=== PATIENT | male | born 1955 | race Caucasian/White ===

== ENCOUNTER 2017-11-29 10:58 | Observation (INO) ==
[2017-11-29] MEDS ORDERED: Adenosine Inj 6 MG/2 ML Syringe IV.PUSH ONE (11:16)
--- NOTE | 2017-11-29 11:55 | ED ---
HPI General Chief complaint: Shortness of Breath/Dyspnea Stated complaint: sob/ears blocking up History of Present Illness HPI narrative: Patient 62-year-old male presents emergency department for evaluation of palpitations and shortness of breath. Patient states he felt like his heart was racing along this morning she decided to come in to be seen. States this is happened to him once in the distant past but never since. No chest pain. No dizziness no nausea no vomiting. Symptoms moderate, started last night, context and associated signs symptoms as above. Denies a history of coronary artery disease. Denies history of atrial fibrillation. Related Data Home Medications Medication Instructions Recorded Confirmed atorvastatin 20 mg PO DAILY 11/29/17 11/29/17 metformin 500 mg PO BID 11/29/17 11/29/17 Allergies Allergy/AdvReac Type Severity Reaction Status Date / Time No Known Allergies Allergy Unknown none Uncoded 11/29/17 11:05 Review of Systems ROS: all other systems reviewed are negative [facility] Family History Family History Other Adopted Social History Social History Substance History: No History of Abuse Second Hand Smoke Exposure: No Smoking Status: Never smoker How Often Do You Have a Drink Containing Alcohol: 2 to 3 times a week Recent Travel in [facility] within the Last 8 Weeks: No Recent Out of Country Travel within the Last 8 Weeks: No Immunization History Tetanus Immunization: Unsure Hx Influenza Vaccine This Season: No Exam Narrative Exam Narrative: GENERAL: Well-developed well-nourished, no obvious distress. SKIN: Focused skin assessment warm/dry. HEAD: Atraumatic. Normocephalic. EYES: Pupils equal and round. No scleral icterus. No injection or drainage. ENT: No nasal bleeding or discharge. Mucous membranes pink and moist. NECK: Trachea midline. No JVD. CARDIOVASCULAR: No murmurs gallops or rubs, he is regular rhythm with tachycardia. Few PVCs noted on cardiac telemetry. No murmur appreciated. RESPIRATORY: No accessory muscle use. Clear to auscultation. Breath sounds equal bilaterally. GASTROINTESTINAL: Abdomen soft, non-tender, nondistended. Hepatic and splenic margins not palpable. MUSCULOSKELETAL: No obvious deformities. No clubbing. No cyanosis. No edema. NEUROLOGICAL: Awake and alert. No obvious cranial nerve deficits. Motor grossly within normal limits. Normal speech. PSYCHIATRIC: Appropriate mood and affect; insight and judgment normal. Course Initial Documented Vital Signs Temperature 98.2 F 11/29/17 11:05 Pulse Rate 156 H 11/29/17 11:05 Respiratory Rate 16 11/29/17 11:05 Blood Pressure 127/74 11/29/17 11:05 Pulse Oximetry 100 11/29/17 11:05 Last Documented Vital Signs Temperature 97.2 F L 11/29/17 20:00 Pulse Rate 61 11/29/17 20:00 Respiratory Rate 20 11/29/17 20:00 Blood Pressure 114/70 11/29/17 20:00 Pulse Oximetry 97 11/29/17 20:11 Medical Decision Making MDM Narrative Medical decision making narrative: Patient was room to the emergency department , found to have SVT at a rate of 140 up to 160. After telemetry was established , EKG obtained the patient was given 6 of adenosine, had conversion to normal sinus rhythm afterwards. Patient states he started to feel better. Initial workup shows significant hyperglycemia without evidence for DKA. CT pe protocol negative. Given new onset i think needs exclusion of ACS. DIscussed with Randy KHAN for Dr. Vann and admit to [facility]. Medical Screen Exam Complete: Yes Emergency Medical Condition: Yes Lab Data Result diagrams: 11/29/17 11:30 11/29/17 11:30 Lab Results 11/29/17 11/29/17 11/29/17 Range/Units 11:30 11:30 11:30 CBC w Diff Auto diff final WBC 8.1 (4.0-11.0) th/mm3 RBC 5.19 (4.50-5.90) mil/mm3 Hgb 15.1 (13.0-17.0) gm/dL Hct 45.5 (39.0-51.0) % MCV 87.7 (80.0-100.0) fL MCH 29.2 (27.0-34.0) pg MCHC 33.3 (32.0-36.0) % RDW 12.6 (11.6-17.2) % Plt Count 214 (150-450) th/mm3 MPV 10.0 (7.0-11.0) fL Neut % (Auto) 55.7 (16.0-70.0) % Lymph % (Auto) 35.0 (9.0-44.0) % [place] % (Auto) 6.7 (0.0-8.0) % Eos % (Auto) 0.9 (0.0-4.0) % Baso % (Auto) 1.7 (0.0-2.0) % Neut # (Auto) 4.6 (1.8-7.7) th/mm3 Lymph # (Auto) 2.8 (1.0-4.8) th/mm3 [place] # (Auto) 0.5 (0.0-0.9) th/mm3 Eos # (Auto) 0.1 (0.0-0.4) th/mm3 Baso # (Auto) 0.1 (0.0-0.2) th/mm3 WBC Differential . Differential Comment . D-Dimer Quant (PE/DVT) (0.00-0.50) mg/L FEU Sodium 137 (136-145) meq/L Potassium 3.6 (3.5-5.1) meq/L Chloride 102 (98-107) meq/L Carbon Dioxide 21.8 (21.0-32.0) meq/L Anion Gap 13 (5-15) meq/L BUN 20 H (7-18) mg/dL Creatinine 1.40 H (0.60-1.30) mg/dL Estimated GFR 51 L (>89) mL/min POC Glucose (68-110) mg/dl Random Glucose 572 H* (74-106) mg/dL Calcium 9.2 (8.5-10.1) mg/dL Total Bilirubin 0.8 (0.2-1.0) mg/dL AST 18 (15-37) U/L ALT 38 (12-78) U/L Alkaline Phosphatase 120 H (45-117) U/L Total Creatine Kinase (39-308) U/L Troponin I 0.03 (0.02-0.05) ng/mL Total Protein 7.7 (6.4-8.2) g/dL Albumin 3.9 (3.4-5.0) g/dL TSH 5.650 H (0.358-3.740) uIU/mL Free T4 (0.76-1.46) ng/dL Free T3 (2.18-3.98) pg/mL 11/29/17 11/29/17 11/29/17 Range/Units 11:30 13:47 16:21 CBC w Diff WBC (4.0-11.0) th/mm3 RBC (4.50-5.90) mil/mm3 Hgb (13.0-17.0) gm/dL Hct (39.0-51.0) % MCV (80.0-100.0) fL MCH (27.0-34.0) pg MCHC (32.0-36.0) % RDW (11.6-17.2) % Plt Count (150-450) th/mm3 MPV (7.0-11.0) fL Neut % (Auto) (16.0-70.0) % Lymph % (Auto) (9.0-44.0) % [place] % (Auto) (0.0-8.0) % Eos % (Auto) (0.0-4.0) % Baso % (Auto) (0.0-2.0) % Neut # (Auto) (1.8-7.7) th/mm3 Lymph # (Auto) (1.0-4.8) th/mm3 [place] # (Auto) (0.0-0.9) th/mm3 Eos # (Auto) (0.0-0.4) th/mm3 Baso # (Auto) (0.0-0.2) th/mm3 WBC Differential Differential Comment D-Dimer Quant (PE/DVT) 0.22 (0.00-0.50) mg/L FEU Sodium (136-145) meq/L Potassium (3.5-5.1) meq/L Chloride (98-107) meq/L Carbon Dioxide (21.0-32.0) meq/L Anion Gap (5-15) meq/L BUN (7-18) mg/dL Creatinine (0.60-1.30) mg/dL Estimated GFR (>89) mL/min POC Glucose 466 H* (68-110) mg/dl Random Glucose (74-106) mg/dL Calcium (8.5-10.1) mg/dL Total Bilirubin (0.2-1.0) mg/dL AST (15-37) U/L ALT (12-78) U/L Alkaline Phosphatase (45-117) U/L Total Creatine Kinase 75 (39-308) U/L Troponin I 0.06 H (0.02-0.05) ng/mL Total Protein (6.4-8.2) g/dL Albumin (3.4-5.0) g/dL TSH (0.358-3.740) uIU/mL Free T4 0.86 (0.76-1.46) ng/dL Free T3 2.30 (2.18-3.98) pg/mL 11/29/17 11/29/17 11/29/17 Range/Units 16:21 16:48 21:19 CBC w Diff WBC (4.0-11.0) th/mm3 RBC (4.50-5.90) mil/mm3 Hgb (13.0-17.0) gm/dL Hct (39.0-51.0) % MCV (80.0-100.0) fL MCH (27.0-34.0) pg MCHC (32.0-36.0) % RDW (11.6-17.2) % Plt Count (150-450) th/mm3 MPV (7.0-11.0) fL Neut % (Auto) (16.0-70.0) % Lymph % (Auto) (9.0-44.0) % [place] % (Auto) (0.0-8.0) % Eos % (Auto) (0.0-4.0) % Baso % (Auto) (0.0-2.0) % Neut # (Auto) (1.8-7.7) th/mm3 Lymph # (Auto) (1.0-4.8) th/mm3 [place] # (Auto) (0.0-0.9) th/mm3 Eos # (Auto) (0.0-0.4) th/mm3 Baso # (Auto) (0.0-0.2) th/mm3 WBC Differential Differential Comment D-Dimer Quant (PE/DVT) (0.00-0.50) mg/L FEU Sodium (136-145) meq/L Potassium (3.5-5.1) meq/L Chloride (98-107) meq/L Carbon Dioxide (21.0-32.0) meq/L Anion Gap (5-15) meq/L BUN (7-18) mg/dL Creatinine (0.60-1.30) mg/dL Estimated GFR (>89) mL/min POC Glucose 342 H 211 H (68-110) mg/dl Random Glucose (74-106) mg/dL Calcium (8.5-10.1) mg/dL Total Bilirubin (0.2-1.0) mg/dL AST (15-37) U/L ALT (12-78) U/L Alkaline Phosphatase (45-117) U/L Total Creatine Kinase Cancelled (39-308) U/L Troponin I Cancelled (0.02-0.05) ng/mL Total Protein (6.4-8.2) g/dL Albumin (3.4-5.0) g/dL TSH (0.358-3.740) uIU/mL Free T4 (0.76-1.46) ng/dL Free T3 (2.18-3.98) pg/mL Imaging Data Radiologist's impression: Chest CTA 11/29/17 11:42 CONCLUSION: 1. Clear lungs. No evidence for PE. Chest X-Ray 11/29/17 11:42 CONCLUSION: Abnormal opacity projects over the right upper lung zone which may be related to developing airspace disease, osseous summation shadow or nodularity. Discharge Plan Discharge Disposition Patient Disposition: 30 Still Patient Discharge Condition Condition: Stable Discharge Details Diagnosis: Supraventricular tachycardia, Hx of diabetes mellitus, History of high cholesterol, Shortness of breath, Uncontrolled diabetes mellitus Physicians Team ED Provider: Cachorro Archer Primary Care Provider: Benny Nuñez Attending Provider: Elza Vann Discharge Interventions Interventions: ED Discharge Assessment Last Done: 11/29/17 16:30 Status ED Status: Left Department Discharge Information Discharge Date/Time: 11/29/17 16:44
[2017-11-29 12:03] LABS: Baso # (Auto) 0.1 th/mm3 (0.0-0.2); Baso % (Auto) 1.7 % (0.0-2.0); Eos # (Auto) 0.1 th/mm3 (0.0-0.4); Eos % (Auto) 0.9 % (0.0-4.0); Hematocrit 45.5 % (39.0-51.0); Hemoglobin 15.1 gm/dL (13.0-17.0); Lymph # (Auto) 2.8 th/mm3 (1.0-4.8); Mean Corpuscular HGB Conc 33.3 % (32.0-36.0); Mean Corpuscular Hemoglobin 29.2 pg (27.0-34.0); Mean Corpuscular Volume 87.7 fL (80.0-100.0); Mono # (Auto) 0.5 th/mm3 (0.0-0.9); Mono % (Auto) 6.7 % (0.0-8.0); Neut # (Auto) 4.6 th/mm3 (1.8-7.7); Neut % (Auto) 55.7 % (16.0-70.0); Platelet Count 214 th/mm3 (150-450); Red Blood Count 5.19 mil/mm3 (4.50-5.90); Red Cell Distribution Width 12.6 % (11.6-17.2); White Blood Count 8.1 th/mm3 (4.0-11.0)
[2017-11-29 12:12] LABS: Chloride 102 meq/L (98-107); Potassium 3.6 meq/L (3.5-5.1); Sodium 137 meq/L (136-145)
[2017-11-29 12:15] LABS: Calcium 9.2 mg/dL (8.5-10.1)
[2017-11-29 12:16] LABS: Albumin 3.9 g/dL (3.4-5.0); Anion Gap 13 meq/L (5-15); Blood Urea Nitrogen 20 mg/dL (7-18); Carbon Dioxide 21.8 meq/L (21.0-32.0)
[2017-11-29 12:19] LABS: Alanine Aminotransferase 38 U/L (12-78); Aspartate Aminotransferase 18 U/L (15-37); Glomerular Filtration Rate 51 mL/min (>89)
[2017-11-29 12:21] LABS: Total Protein 7.7 g/dL (6.4-8.2)
--- NOTE | 2017-11-29 12:21 | XR ---
EXAM DATE: 11/29/2017 12:10 PM EDT AGE/SEX: 62 years / Male INDICATIONS: Short of breath, heart racing. CLINICAL DATA: This is the patient's initial encounter. Patient reports that signs and symptoms have been present for 1 day and indicates a pain score of 0/10. MEDICAL/SURGICAL HISTORY: Diabetes mellitus type II. None. COMPARISON: No prior exams available for comparison. FINDINGS: Degenerative changes of the spine. Heart size normal. There is vague nodular opacity and parenchymal density overlying the right upper lobe. This may reflect an area of airspace disease or underlying beatriz ng nodules. No effusions. CONCLUSION: Abnormal opacity projects over the right upper lung zone which may be related to developing airspace disease, osseous summation shadow or nodularity. Electronically signed by: Sergey Santos MD 11/29/2017 12:19 PM EDT
[2017-11-29 12:34] LABS: Alkaline Phosphatase 120 U/L (45-117); Troponin I 0.03 ng/mL (0.02-0.05)
[2017-11-29 12:35] LABS: Glucose,Random 572 mg/dL (74-106)
[2017-11-29] MEDS ORDERED: Sod Chloride 0.9% Inj 1,000 ML IV.SIG SCH (12:45)
--- NOTE | 2017-11-29 13:00 | CT ---
EXAM DATE: 11/29/2017 12:50 PM EDT AGE/SEX: 62 years / Male INDICATIONS: Short of breath. CLINICAL DATA: This is the patient's initial encounter. Patient reports that signs and symptoms have been present for 1 day and indicates a pain score of 0/10. MEDICAL/SURGICAL HISTORY: Diabetes. None. RADIATION DOSE: 10.92 CTDI (mGy) COMPARISON: [facility], CHEST 1V SINGLE AP, 11/29/2017. . TECHNIQUE: Volumetric scanning was performed using a multi-row detector CT scanner during bolus infu kathy of 75 ml Omnipaque 350 (iohexol) nonionic water-soluble contrast as a single exam dose. The hany a was post processed with a variety of visualization algorithms including full volume maximum intensi ty projection and sliding thin slab reformation. Using automated exposure control and adjustment of the mA and/or kV according to patient size, radiation dose was kept as low as reasonably achievable t o obtain optimal diagnostic quality images. DICOM format image data is available electronically for review and comparison. FINDINGS: The lungs are clear. There is no evidence for pulmonary embolism. No pleural or pericardial effusions . No adenopathy. Osseous structures are intact. CONCLUSION: 1. Clear lungs. No evidence for PE. Electronically signed by: Sergey Santos MD 11/29/2017 12:58 PM EDT
--- NOTE | 2017-11-29 13:05 | ECG ---
Date Performed: 11/29/2017 Time Performed: 11:06:09 PTAGE: 62 years EKG: SUPRAVENTRICULAR TACHYCARDIA INDETERMINATE AXIS ABNORMAL RHYTHM ECG PREVIOUS TRACING : 05/17/2011 14.58 DOCTOR: Raudel Cardenas Interpretating Date/Time 11/29/2017 13:04:24
[2017-11-29] MEDS ORDERED: Temazepam 15 MG Capsule PO PRN (14:19)
[2017-11-29] MEDS ORDERED: Acetaminophen 500 MG Tablet PO PRN (14:19)
[2017-11-29] MEDS ORDERED: Dextrose 50% in Water 50 ML Vial IV.PUSH PRN (14:23)
[2017-11-29] MEDS: Heparin - SQ 10,000 UNITS/ML Vial SQ SCH (16:26)
[2017-11-29] MEDS: Sod Chloride 0.9% Inj 1,000 ML IV.CONT SCH (16:27)
--- NOTE | 2017-11-29 16:47 | P.HP ---
History of Present Illness Primary Care Physician: Benny Nueñz Chief Complaint: Shortness of breath History of Present Illness: 62-year-old male with known history of diabetes who presented to the hospital because of shortness of breath. Patient states that he was in a normal state of health until this morning when he went to take the garbage out when he started developing shortness of breath, dyspnea on exertion. Patient states that his respiratory status did not improve and she started developing some sweating over his chest and because of that he came to emergency department for evaluation. Patient indicates that on his way to the hospital he started feeling as if his heart was racing. Patient came to the emergency department patient was found to have supraventricular tachycardia with heart rate in 150s. Patient was given adenosine with correction of his heart rate. Patient states that approximately 8 months ago he had a similar type of discomfort. However it went away on its own. This time lasted much longer than is reason why he came to the hospital. Patient denied any chest pain, nausea, vomiting, lower extremity edema, abdominal pain. - Diagnosis (1) Supraventricular tachycardia (2) Shortness of breath (3) Uncontrolled diabetes mellitus Review of Systems All other systems reviewed negative except as stated in HPI Cardiovascular: Reports rapid, pounding, or irregular heartbeat, Reports shortness of breath with activity Respiratory: Reports shortness of breath PMFSH - History History Provided By: Patient - Medical History Medical History: Medical History (Last Reviewed 11/29/17 @ 16:43 by BILL Adamson) History of high cholesterol (Acute) Hx of diabetes mellitus (Acute) - Surgical History Surgical History: Surgical History (Last Reviewed 11/29/17 @ 16:43 by BILL Adamson) History of tonsillectomy and adenoidectomy (Acute) - Family History Family History: Family History (Last Updated 11/29/17 @ 16:43 by BILL Adamson) Other Adopted - Tobacco History Second Hand Smoke Exposure: No Smoking Status: Never smoker - Alcohol History How Often Do You Have a Drink Containing Alcohol: 2 to 4 times a month - Substance Use History Substance History: No History of Abuse - Travel History Recent Travel in the [place] Within the Last 8 Weeks: No Recent Travel Out of the Country Within the Last 8 Weeks: No - Immunization History Tetanus Immunization: Unsure Hx Influenza Vaccine This Season: No Medications and Allergies Active Medications: Active Medications Acetaminophen (Tylenol) 500 mg PO Q4H PRN PRN Reason: HEADACHE Aspirin (Aspirin) 325 mg PO DAILY [facility] Atorvastatin Calcium (Lipitor) 20 mg PO DAILY [facility] Dextrose (D50w Vial) 50 ml IV.PUSH UNSCH PRN PRN Reason: PER HYPOGLYCEMIA PROTOCOL Glucagon (Glucagon Inj) 1 mg OTHER PRN PRN PRN Reason: for Hypoglycemia Protocol Heparin Sodium (Porcine) (Heparin Inj) 5,000 units SQ Q12H [facility] Last Admin: 11/29/17 16:26 Dose: 5,000 units Sodium Chloride (Ns Inj) 1,000 mls @ 0 mls/hr IV.SIG BOLUS [facility] Last Infusion: 11/29/17 14:04 Dose: Infused Sodium Chloride (Ns Inj) 1,000 mls @ 100 mls/hr IV.CONT .Q10H [facility] Last Admin: 11/29/17 16:27 Dose: 100 mls/hr Insulin Aspart (Novolog Insulin Correctional Sugar Inj) 0 unit SQ ACHS [facility]; Protocol Nitroglycerin (Nitrostat Sl) 0.4 mg SL Q5M PRN PRN Reason: ANGINA Sodium Chloride (Ns Flush) 2 ml IV.FLUSH UNSCH PRN PRN Reason: FLUSH AFTER USING IV ACCESS Sodium Chloride (Ns Flush) 2 ml IV.FLUSH BID [facility] Sodium Chloride (Ns Flush) 2 ml IV.FLUSH PRN PRN PRN Reason: FLUSH AFTER USING IV ACCESS Temazepam (Restoril) 15 mg PO HS PRN PRN Reason: INSOMNIA Allergies Allergy/AdvReac Type Severity Reaction Status Date / Time No Known Allergies Allergy Unknown none Uncoded 11/29/17 11:05 Home Medications Medication Instructions Recorded Confirmed Type atorvastatin 20 mg PO DAILY 11/29/17 11/29/17 History metformin 500 mg PO BID 11/29/17 11/29/17 History Exam Vital signs: Vital Signs 11/29/17 11:05 11/29/17 11:27 11/29/17 11:32 Temperature 98.2 F 98.2 F Pulse Rate 156 H 156 H 70 Respiratory Rate 16 16 16 Blood Pressure 127/74 127/74 111/67 Pulse Oximetry 100 100 99 11/29/17 11:42 11/29/17 13:23 11/29/17 15:37 Temperature Pulse Rate 60 Respiratory Rate 16 Blood Pressure 118/66 Pulse Oximetry 98 98 98 11/29/17 16:29 Temperature Pulse Rate 52 L Respiratory Rate 16 Blood Pressure 131/74 Pulse Oximetry 98 Intake & Output 11/28/17 11/29/17 11/29/17 18:59 06:59 18:59 Intake Total 1000 / 1000 Output Total 700 / 700 Balance 300 / 300 Weight 75 kg Intake: IV 1000 / 1000 NS Inj 1,000 ML @ Wide Open IV. 1000 / 1000 SIG BOLUS [facility] Rx#:[id number] Output: Urine 700 / 700 Narrative: GENERAL: Well-developed, well-nourished, in no acute distress. alert and orientated HEENT: Head is normocephalic without any lesions or masses noted. Facial features are symmetric. Eyes: Pupils equal round reactive to light. Extraocular muscles are intact. Conjunctivae were clear. Oropharyngeal: Pharynx without any erythema edema. Tongue is midline without deviation. Buccal mucosa is moist without any masses or lesions NECK: Supple without any masses. Trachea midline no deviation. No JVD, no bruits are appreciated CARDIAC: Regular rhythm, regular rate. S1/S2 are heard. No murmurs gallops or rubs. LUNGS: Clear to auscultation bilaterally. No wheeze, rhonchi or rales. No use of accessory muscles on inspiration or expiration. ABDOMEN: Soft, nontender. Nondistended. Bowel sounds heard in all 4 quadrants. No organomegaly or masses. Negative rebound, negative guarding EXTREMITIES: No edema, pulses are equal bilaterally. No cyanosis or clubbing NEUROLOGY: Mood and affect appear appropriate. Cranial nerves II through XII grossly intact. Muscle strength 5/5 in upper and lower extremities bilaterally. Deep tendon reflexes are 2+ in upper and lower extremities bilaterally. Results - Labs CBC & Chem 7: 11/29/17 11:30 11/29/17 11:30 Labs: Laboratory Results - last 24 hr 11/29/17 11/29/17 11/29/17 11:30 11:30 11:30 CBC w Diff Auto diff final WBC 8.1 RBC 5.19 Hgb 15.1 Hct 45.5 MCV 87.7 MCH 29.2 MCHC 33.3 RDW 12.6 Plt Count 214 MPV 10.0 Neut % (Auto) 55.7 Lymph % (Auto) 35.0 [place] % (Auto) 6.7 Eos % (Auto) 0.9 Baso % (Auto) 1.7 Neut # (Auto) 4.6 Lymph # (Auto) 2.8 [place] # (Auto) 0.5 Eos # (Auto) 0.1 Baso # (Auto) 0.1 WBC Differential . Differential Comment . Sodium 137 Potassium 3.6 Chloride 102 Carbon Dioxide 21.8 Anion Gap 13 BUN 20 H Creatinine 1.40 H Estimated GFR 51 L POC Glucose Random Glucose 572 H* Calcium 9.2 Total Bilirubin 0.8 AST 18 ALT 38 Alkaline Phosphatase 120 H Troponin I 0.03 Total Protein 7.7 Albumin 3.9 TSH 5.650 H 11/29/17 13:47 CBC w Diff WBC RBC Hgb Hct MCV MCH MCHC RDW Plt Count MPV Neut % (Auto) Lymph % (Auto) [place] % (Auto) Eos % (Auto) Baso % (Auto) Neut # (Auto) Lymph # (Auto) [place] # (Auto) Eos # (Auto) Baso # (Auto) WBC Differential Differential Comment Sodium Potassium Chloride Carbon Dioxide Anion Gap BUN Creatinine Estimated GFR POC Glucose 466 H* Random Glucose Calcium Total Bilirubin AST ALT Alkaline Phosphatase Troponin I Total Protein Albumin TSH - Imaging Impressions Chest CTA 11/29/17 11:42 CONCLUSION: 1. Clear lungs. No evidence for PE. Chest X-Ray 11/29/17 11:42 CONCLUSION: Abnormal opacity projects over the right upper lung zone which may be related to developing airspace disease, osseous summation shadow or nodularity. Caprini VTE Risk Assessment Caprini VTE Risk Assessment: Moderate/High Risk (score >= 2) Caprini Risk Assessment Model: Point Value = 1 Point Value = 2 Point Value = 3 Point Value = 5 Age 41-60 Minor surgery BMI > 25 kg/m2 Swollen legs Varicose veins or History of unexplained or recurrent spontaneous Oral contraceptives or hormone replacement Sepsis (< 1 month) Serious lung disease, including pneumonia (< 1 month) Abnormal pulmonary function Acute myocardial infarction Congestive heart failure (< 1 month) History of inflammatory bowel disease Medical patient at bed rest Age 61-74 Arthroscopic surgery Major open surgery (> 45 min) Laparoscopic surgery (> 45 min) Malignancy Confined to bed (> 72 hours) Immobilizing plaster cast Central venous access Age >= 75 History of VTE Family history of VTE Factor V Leiden Prothrombin [id number] Lupus anticoagulant Anticardiolipin antibodies Elevated serum homocysteine Heparin-induced thrombocytopenia Other congenital or acquired thrombophilia Stroke (< 1 month) Elective arthroplasty Hip, pelvis, or leg fracture Acute spinal cord injury (< 1 month) Prophylaxis Regimen: Total Risk Factor Score Risk Level Prophylaxis Regimen 0-1 Low Early ambulation 2 Moderate Order ONE of the following: *Sequential Compression Device (SCD) *Heparin 5000 units SQ BID 3-4 Higher Order ONE of the following medications: *Heparin 5000 units SQ TID *Enoxaparin/Lovenox 40 mg SQ daily (WT < 150 kg, CrCl > 30 mL/min) *Enoxaparin/Lovenox 30 mg SQ daily (WT < 150 kg, CrCl > 10-29 mL/min) *Enoxaparin/Lovenox 30 mg SQ BID (WT < 150 kg, CrCl > 30 mL/min) AND/OR *Sequential Compression Device (SCD) 5 or more Highest Order ONE of the following medications: *Heparin 5000 units SQ TID (Preferred with Epidurals) *Enoxaparin/Lovenox 40 mg SQ daily (WT < 150 kg, CrCl > 30 mL/min) *Enoxaparin/Lovenox 30 mg SQ daily (WT < 150 kg, CrCl > 10-29 mL/min) *Enoxaparin/Lovenox 30 mg SQ BID (WT < 150 kg, CrCl > 30 mL/min) AND *Sequential Compression Device (SCD) Assessment and Plan - Assessment (1) Supraventricular tachycardia Code(s): I47.1 - Supraventricular tachycardia Status: Acute (2) Shortness of breath Code(s): R06.02 - Shortness of breath Status: Acute (3) Uncontrolled diabetes mellitus Code(s): E11.65 - Type 2 diabetes mellitus with hyperglycemia Status: Acute - Plan Supraventricular tachycardia -Status post adenosine in the emergency department with improved heart rate -We will continue ruled patient out for any underlying cardiac issues with serial cardiac enzymes, serial EKGs, obtain stat d-dimer -TSH was performed which was 5.65, obtain free T4, free T3 -Obtain lipid panel Uncontrolled diabetes -Status post IV insulin in the emergency department -Accu-Cheks with sliding scale insulin -Obtain hemoglobin A1c DVT prevention -Subcutaneous heparin
[2017-11-29 16:48] LABS: Troponin I 0.06 ng/mL (0.02-0.05)
[2017-11-29] MEDS: Insulin NovoLOG Aspart Correctional Sugar Inj SQ SCH ×2 (18:09→21:37)
[2017-11-29 22:33] LABS: Free T4 (Free Thyroxine) 0.86 ng/dL (0.76-1.46); Triiodothyronine (T3) Free 2.3 pg/mL (2.18-3.98)
[2017-11-29 23:53] LABS: Troponin I 0.07 ng/mL (0.02-0.05)
[2017-11-30] MEDS: Sod Chloride 0.9% Inj 1,000 ML IV.CONT SCH ×2 (01:52→11:13)
[2017-11-30] MEDS: Heparin - SQ 10,000 UNITS/ML Vial SQ SCH (04:50)
[2017-11-30 06:30] LABS: Chloride 109 meq/L (98-107); Potassium 3.8 meq/L (3.5-5.1); Sodium 143 meq/L (136-145)
[2017-11-30 06:38] LABS: Anion Gap 8 meq/L (5-15); Blood Urea Nitrogen 17 mg/dL (7-18); Calcium 8.1 mg/dL (8.5-10.1); Carbon Dioxide 26.5 meq/L (21.0-32.0); Glomerular Filtration Rate Greater Than 89 mL/min (>89); Glucose,Random 179 mg/dL (74-106)
[2017-11-30] MEDS: Insulin NovoLOG Aspart Correctional Sugar Inj SQ SCH ×2 (08:13→11:52)
--- NOTE | 2017-11-30 08:15 | P.PN ---
Subjective Interval history: Patient seen and examined today to follow-up on supraventricular tachycardia. Patient has not had any recurrent episodes of tachycardia. Telemetry indicating bradycardia. Patient denies any chest pain, shortness of breath, dyspnea. Vital signs still indicate bradycardia. Blood pressure stable. Patient remains afebrile Physical Exam Vital signs: Vital Signs 11/29/17 11:05 11/29/17 11:27 11/29/17 11:32 Temperature 98.2 F 98.2 F Pulse Rate 156 H 156 H 70 Respiratory Rate 16 16 16 Blood Pressure 127/74 127/74 111/67 Pulse Oximetry 100 100 99 11/29/17 11:42 11/29/17 13:23 11/29/17 15:37 Temperature Pulse Rate 60 Respiratory Rate 16 Blood Pressure 118/66 Pulse Oximetry 98 98 98 11/29/17 16:00 11/29/17 16:29 11/29/17 16:45 Temperature 96.8 F L Pulse Rate 50 L 52 L Respiratory Rate 16 16 Blood Pressure 137/63 131/74 Pulse Oximetry 98 98 99 11/29/17 16:54 11/29/17 17:13 11/29/17 20:00 Temperature 97.2 F L Pulse Rate 52 L 61 Respiratory Rate 20 Blood Pressure 114/70 Pulse Oximetry 99 97 11/29/17 20:11 11/30/17 00:00 11/30/17 04:00 Temperature 98.0 F 96.0 F L Pulse Rate 54 L 55 L Respiratory Rate 20 21 Blood Pressure 127/76 126/80 Pulse Oximetry 97 98 98 11/30/17 07:52 Temperature Pulse Rate Respiratory Rate Blood Pressure Pulse Oximetry 97 Intake & Output 11/29/17 11/30/17 11/30/17 18:59 06:59 18:59 Intake Total 1360 / 1360 1000 / 1000 Output Total 700 / 700 Balance 660 / 660 1000 / 1000 Weight 81.3 kg 82 kg Intake: IV 1000 / 1000 1000 / 1000 NS Inj 1,000 ML @ 100 mls/hr IV 1000 / 1000 .CONT .Q10H LALI Rx#:[id number] NS Inj 1,000 ML @ Wide Open IV. 1000 / 1000 SIG BOLUS LALI Rx#:[id number] Oral 360 / 360 0 / 0 Output: Urine 700 / 700 Other: # Voids 1 3 # Bowel Movements 0 Weight On Admission 81.3 kg Narrative: GENERAL: Well-developed, well-nourished, in no acute distress. alert and orientated HEENT: Head is normocephalic without any lesions or masses noted. Facial features are symmetric. Eyes: Extraocular muscles are intact. Conjunctivae were clear. NECK: Supple without any masses. Trachea midline no deviation. No JVD, CARDIAC: Regular rhythm, bradycardic. S1/S2 are heard. No murmurs gallops or rubs. LUNGS: Clear to auscultation bilaterally. No wheeze, rhonchi or rales. No use of accessory muscles on inspiration or expiration. ABDOMEN: Soft, nontender. Nondistended. Bowel sounds heard in all 4 quadrants. No organomegaly or masses. Negative rebound, negative guarding EXTREMITIES: No edema, pulses are equal bilaterally. No cyanosis or clubbing NEUROLOGY: Mood and affect appear appropriate. Cranial nerves II through XII grossly intact. Moving all extremities, speech is clear Results - Labs CBC & Chem 7: 11/29/17 11:30 11/30/17 05:15 Laboratory Results - last 24 hr 11/29/17 11/29/17 11/29/17 11:30 11:30 11:30 CBC w Diff Auto diff final WBC 8.1 RBC 5.19 Hgb 15.1 Hct 45.5 MCV 87.7 MCH 29.2 MCHC 33.3 RDW 12.6 Plt Count 214 MPV 10.0 Neut % (Auto) 55.7 Lymph % (Auto) 35.0 [place] % (Auto) 6.7 Eos % (Auto) 0.9 Baso % (Auto) 1.7 Neut # (Auto) 4.6 Lymph # (Auto) 2.8 [place] # (Auto) 0.5 Eos # (Auto) 0.1 Baso # (Auto) 0.1 WBC Differential . Differential Comment . D-Dimer Quant (PE/DVT) Sodium 137 Potassium 3.6 Chloride 102 Carbon Dioxide 21.8 Anion Gap 13 BUN 20 H Creatinine 1.40 H Estimated GFR 51 L POC Glucose Random Glucose 572 H* Calcium 9.2 Total Bilirubin 0.8 AST 18 ALT 38 Alkaline Phosphatase 120 H Total Creatine Kinase Troponin I 0.03 Total Protein 7.7 Albumin 3.9 TSH 5.650 H Free T4 Free T3 11/29/17 11/29/17 11/29/17 11:30 13:47 16:21 CBC w Diff WBC RBC Hgb Hct MCV MCH MCHC RDW Plt Count MPV Neut % (Auto) Lymph % (Auto) [place] % (Auto) Eos % (Auto) Baso % (Auto) Neut # (Auto) Lymph # (Auto) [place] # (Auto) Eos # (Auto) Baso # (Auto) WBC Differential Differential Comment D-Dimer Quant (PE/DVT) 0.22 Sodium Potassium Chloride Carbon Dioxide Anion Gap BUN Creatinine Estimated GFR POC Glucose 466 H* Random Glucose Calcium Total Bilirubin AST ALT Alkaline Phosphatase Total Creatine Kinase 75 Troponin I 0.06 H Total Protein Albumin TSH Free T4 0.86 Free T3 2.30 11/29/17 11/29/17 11/29/17 16:21 16:48 21:19 CBC w Diff WBC RBC Hgb Hct MCV MCH MCHC RDW Plt Count MPV Neut % (Auto) Lymph % (Auto) [place] % (Auto) Eos % (Auto) Baso % (Auto) Neut # (Auto) Lymph # (Auto) [place] # (Auto) Eos # (Auto) Baso # (Auto) WBC Differential Differential Comment D-Dimer Quant (PE/DVT) Sodium Potassium Chloride Carbon Dioxide Anion Gap BUN Creatinine Estimated GFR POC Glucose 342 H 211 H Random Glucose Calcium Total Bilirubin AST ALT Alkaline Phosphatase Total Creatine Kinase Cancelled Troponin I Cancelled Total Protein Albumin TSH Free T4 Free T3 11/29/17 11/30/17 11/30/17 23:20 05:15 07:33 CBC w Diff WBC RBC Hgb Hct MCV MCH MCHC RDW Plt Count MPV Neut % (Auto) Lymph % (Auto) [place] % (Auto) Eos % (Auto) Baso % (Auto) Neut # (Auto) Lymph # (Auto) [place] # (Auto) Eos # (Auto) Baso # (Auto) WBC Differential Differential Comment D-Dimer Quant (PE/DVT) Sodium 143 Potassium 3.8 Chloride 109 H Carbon Dioxide 26.5 Anion Gap 8 BUN 17 Creatinine 0.73 Estimated GFR Greater than 89 POC Glucose 198 H Random Glucose 179 H D Calcium 8.1 L D Total Bilirubin AST ALT Alkaline Phosphatase Total Creatine Kinase 66 Troponin I 0.07 H Total Protein Albumin TSH Free T4 Free T3 - Imaging Impressions Chest CTA 11/29/17 11:42 CONCLUSION: 1. Clear lungs. No evidence for PE. Chest X-Ray 11/29/17 11:42 CONCLUSION: Abnormal opacity projects over the right upper lung zone which may be related to developing airspace disease, osseous summation shadow or nodularity. Assessment and Plan - Assessment (1) Supraventricular tachycardia Code(s): I47.1 - Supraventricular tachycardia Status: Acute (2) Shortness of breath Code(s): R06.02 - Shortness of breath Status: Acute (3) Uncontrolled diabetes mellitus Code(s): E11.65 - Type 2 diabetes mellitus with hyperglycemia Status: Acute - Plan Supraventricular tachycardia -Status post adenosine in the emergency department with improved heart rate -Serial cardiac enzymes were performed which did have mild elevation with equivocal troponin up to 0.07 -TSH was performed which was 5.65, obtain free T4 0.86, free T3 2.30 -Lipid panel indicates that LDL 46 -cardiology consultation for further recommendations -Myocardial perfusion study was performed and indicated mild apical perfusion abnormalities with low risk. Cardiology was notified who indicated possible apical thinning artifact okay to discharge with follow-up with Dr. Montalvo in 3-4 weeks Uncontrolled diabetes, improved with sliding scale insulin -Status post IV insulin in the emergency department -Accu-Cheks with sliding scale insulin, patient has used 16 units of insulin since admission -Hemoglobin A1c pending DVT prevention -Subcutaneous heparin Discussed Condition With: Discussed with patient, nursing staff, cardiology Discharge Planning: Discharge home in stable condition Activity: Ad esther. Diet: Healthy heart diet, diabetic diet Medication per medication reconciliation Follow-up with primary medical doctor in 1 week
[2017-11-30 08:44] VITALS: O2SAT 100
[2017-11-30] MEDS ORDERED: Aspirin 325 MG Tablet PO SCH (09:00)
--- NOTE | 2017-11-30 09:06 | MB ---
cc: Enmanuel Olivares MD DATE: 11/30/2017 REASON FOR CONSULTATION: Abnormal troponin level, paroxysmal supraventricular tachycardia. HISTORY OF PRESENT ILLNESS: The patient is a 62-year-old white male with a history of diabetes, hyperlipidemia, who was in his usual state of health up until yesterday morning when he began experience racing palpitations, preceded by approximately 40 minutes of increasing dyspnea. He believes the palpitations lasted about 90 minutes prior to being given adenosine in the emergency department, which broke the supraventricular tachycardia promptly. Many years ago, he had similar racing palpitations, but lasted only a few minutes. At the time of his palpitations, he also felt mildly diaphoretic. He denies sue chest pain, nausea, syncope, near syncope, pedal edema, paroxysmal nocturnal dyspnea. Yesterday, he also felt mildly lightheaded during the tachycardia. PAST MEDICAL HISTORY: 1. Diabetes. 2. Hyperlipidemia. PAST SURGICAL HISTORY: 1. Tonsillectomy. 2. Adenoidectomy. CARDIAC MEDICATIONS AT HOME: Atorvastatin 20 mg at bedtime. ALLERGIES: NO KNOWN DRUG ALLERGIES. FAMILY HISTORY: Unknown. The patient is adopted. SOCIAL HISTORY: The patient denies any history of tobacco abuse. He drinks occasional alcohol. REVIEW OF SYSTEMS: As in the history of present illness, otherwise negative or noncontributory. He also denies headache, abdominal pain, melena, dyspepsia, bright red blood per rectum, fevers. PHYSICAL EXAMINATION: VITAL SIGNS: His blood pressure 126/80 with a pulse of 50, respirations 20. GENERAL: He is a well-developed, well-nourished, white male in no acute distress. NECK: Jugular venous pressure is normal. Carotid pulses are 2+ bilaterally without bruits. CHEST: Reveals clear lungs vogel. CARDIAC: He has a bradycardic regular rhythm without S3, S4, or murmur. ABDOMEN: He has a soft nontender abdomen. Bowel sounds are present. There is no definite hepatosplenomegaly. EXTREMITIES: Reveals no clubbing, cyanosis, or edema. DIAGNOSTIC DATA: EKG from 11/29/2017 at 11:06 a.m. shows supraventricular tachycardia with a cycle length of 400 milliseconds, otherwise normal EKG. EKG from 11/29/2017 at 5:39 p.m. shows sinus bradycardia, otherwise normal. Laboratory data includes normal CBC. Normal basic metabolic profile, except for glucose 179. CK 75. Troponin 0.07. IMPRESSION: Paroxysmal supraventricular tachycardia, slightly abnormal troponin level in this 62-year-old white male with a history of diabetes, hyperlipidemia. Since coming into the hospital, he has had no further tachycardia. His tachyarrhythmia yesterday was promptly responsive to adenosine. 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 The slightly abnormal troponin levels are probably due to the tachycardia. On the other hand, he is a diabetic and has a history of hyperlipidemia. He also experienced symptoms of dyspnea and diaphoresis with the tachycardic episode yesterday. Post-tachycardia EKG is unremarkable. RECOMMENDATIONS: 1. As treatment of his supraventricular tachycardia with antiarrhythmic drugs or AV tariq suppressing drugs will be difficult with his underlying bradycardia, recommend continued observation as his episodes are overall rare at this time. If he has significant recurrences in the future, I have recommended he see our [employer] for an ablation procedure. 2. Given his slightly abnormal troponin levels and coronary artery disease risk factors, recommend checking a Lexiscan nuclear stress test. If it is negative for ischemia, he is cleared for discharge later today. MD MILE Alcala/valerie , 08:30 AM , 08:38 AM MTDAnat
[2017-11-30] MEDS ORDERED: Regadenoson Inj 0.4 MG/5 ML Syringe IV.PUSH ONE (10:06)
--- NOTE | 2017-11-30 11:30 | NM ---
EXAM DATE: 11/30/2017 11:19 AM EDT AGE/SEX: 62 years / Male INDICATIONS:Angina. . Palpitations and dyspnea. CLINICAL DATA: This is the patient's initial encounter. Patient reports that signs and symptoms have been present for 1 day and indicates a pain score of 0/10. MEDICAL/SURGICAL HISTORY: Diabetes mellitus type II. Hypercholesterolemia. Tonsillectomy. COMPARISON: No prior exams available for comparison. DOSE: 8.6 mCi Tc 99m Myoview at rest 26.6 mCi [id number] at stress 0.4 mg Lexiscan STRESS SYMPTOMS: Chest tightness and head pressure. EJECTION FRACTION: 56 % TECHNIQUE: The patient underwent pharmacologic stress with infusion of prescribed dose. Continuous ECG tracing was monitored during stress. Gated SPECT imaging was performed after stress and conventi onal SPECT imaging was performed at rest. The examination was performed on a SPECT/CT scanner, both attenuation and non-corrected datasets were reviewed. FINDINGS: Distribution: The maximum perfused segment at stress is in the septal wall. Perfusion Study: Mildly diminished relative perfusion in portions of the apex . No sizable defects Gated Study: There are intact wall motion and wall thickening without hypokinetic or dyskinetic segm ents. The ejection fraction is calculated at 56%. RISK CATEGORY: Low (<1% Annual Motality Rate) CONCLUSION: Mild apical perfusion abnormalities. Electronically signed by: Randy Vieira MD 11/30/2017 11:29 AM EDT
[2017-11-30 11:32] LABS: Chol/HDL Ratio 2.83 Ratio; HDL Cholesterol 37.4 mg/dL (40.0-60.0)
[2017-11-30 12:31] VITALS: BP 121/58; PULSE 50; RESP 14; TEMP 96.8
[2017-11-30 15:46] LABS: Hemoglobin A1c 13.1 % (4.3-6.0)
--- NOTE | 2017-11-30 17:22 | TR ---
Date Performed: 11/30/2017 Time Performed: 10:31:34 DOCTOR: Viviana Villarreal DRUG LIST: CLINICAL HISTORY: REASON FOR TEST: PALPITATIONS DYSPNEA R/O ANGINA REASON FOR ENDING: OBSERVATION: CONCLUSION: Lexiscan stress test was performed under standard four minute protocol. Radionuclid e was injected one minute prior to ending the test. No electrocardiographic abormalities were present to suggest ischemia. Nuclear imaging and interpretation are pending. COMMENTS: No electrocardiographic abormalities were present to suggest ischemia. Nuclear imagin g and interpretation are pending.
--- NOTE | 2017-12-01 00:10 | ECG ---
Date Performed: 11/29/2017 Time Performed: 22:37:03 PTAGE: 62 years EKG: Sinus rhythm NORMAL ECG PREVIOUS TRACING : 11/29/2017 17.35 Compared to previous tracing, no longer bradycardic DOCTOR: Yaw Craft Interpretating Date/Time 12/01/2017 00:08:58
--- NOTE | 2017-12-01 00:40 | ECG ---
Date Performed: 11/29/2017 Time Performed: 17:35:39 PTAGE: 62 years EKG: SINUS BRADYCARDIA WITH FIRST DEGREE AV BLOCK ABNORMAL ECG PREVIOUS TRACING : 11/29/2017 11.06 Compared to previous tracing, previously SVT DOCTOR: Yaw Craft Interpretating Date/Time 12/01/2017 00:38:43
== END 2017-11-30 13:45 | disposition home or self-care (01) ==
LOC: PHED 10:58 → PHEDA 10:58 → PH3 14:50
PROVIDERS: ADMIT Hospitalist; ATTEND Hospitalist